=== PATIENT | female | born 1995 | race African-American/Black ===

== ENCOUNTER 2017-04-02 12:22 | Emergency (ER) | payer OTHER ==
[~2017-04-02] VITALS: Ht 154.9 cm; Wt 83.0 kg
--- NOTE | ~2017-04-02 | US67 ---
[facility] A Service of [facility] RADIOLOGY TEXT RESULTS PATIENT: IAM CADENA LOCATION: [facility] : [birth year] UNIT #: [id number] AGE: [address]: Inna Tobar SEX: F ORDER DR: [id number] [facility] [address] [place], [place] [address] [id number] E MR#: [id number] Acc #: [id number] NAME: IAM CADENA. : 1995 SEX: F STUDY DATE/TIME: 04/02/2017 13:11 UNIT: [facility] ROOM: STUDY DESCRIPTION: Gallbladder Attending Physician: Inna Tobar P.A.-C. Ordering Physician: Inna Tobar P.A.-C. Primary Care Physician: Kumar Martinez M.D. MEDICAL IMAGING REPORT This report is preliminary unless electronic signature is present EXAM Gallbladder ultrasound 04/02/2017 HISTORY Right upper quadrant pain for 2 days. No prior abdominal surgery. No hypertension. No hyperlipidemia. TECHNIQUE Real-time ultrasonography right upper quadrant performed. COMPARISON STUDIES No prior studies for comparison. FINDINGS The pancreas normal in appearance. The liver is normal in contour and echotexture. The portal vein and inferior vena cava are patent. Normal direction of flow in portal vein. The common bile duct measures 3.7 mm in diameter. There is no intra- or extrahepatic biliary ductal dilatation. The gallbladder is normal in volume. There is no gallstone, gallbladder wall thickening or pericholecystic fluid. The gallbladder wall measures about 2 mm in thickness. There does appear to be some sludge in the gallbladder. The liver is normal in size measuring approximately 16.1 cm in craniocaudal extent. The right kidney measures 9.87 cm in greatest length. There is no hydronephrosis or nephrolithiasis. No cystic or solid mass lesion. No perinephric fluid collection. IMPRESSION Normal right upper quadrant ultrasound. Dictated by... Jayesh Aguilar M.D. [facility] A Service of [facility] RADIOLOGY TEXT RESULTS PATIENT: IAM CADENA LOCATION: [facility] : [birth year] UNIT #: [id number] AGE: [address]: Inna Tobar SEX: F ORDER DR: THIS IS AN ELECTRONICALLY VERIFIED REPORT Jayesh Aguilar M.D. at 04/03/2017 6:04 PM Dianelys TD: 04/02/2017 20:39 JOB #: [id number] MEDICAL IMAGING REPORT Page 1 of 1 COPY
[~2017-04-02 12:22] MED LIST: CIPRO PO; CORTISONE14 GM TP; ELIMITE60 G1 TP; NO MEDICATIONS; TYLENOL #3 PO
[2017-04-02 12:57] LABS: URINE SOURCE CLEAN CATCH
[2017-04-02 13:07] LABS: BASOPHIL# 0.1 X10e3 (0-0.3); BASOPHIL% 0.5 % (0-2.5); EOSINOPHIL% 0.5 % (0.0-7.0); HEMATOCRIT 36.6 % (35.0-45.0); HEMOGLOBIN 12.4 gm/dL (12.0-16.0); LYMPHOCYTE% 18.8 % (17.0-45.0); MEAN CELL VOLUME 87.5 FL (83-96); MEAN CORPUSCULAR HEMOGLOBIN 29.6 PG (28-34); MEAN CORPUSCULAR HGB CONC 33.8 g/dL (30-36); MEAN PLATELET VOLUME 7.2 FL (6.5-11.5); MONOCYTE# 0.4 X10e3 (0-1.0); NEUTROPHIL% 76.2 % (40-75); PLATELET COUNT 245 X10e3 (140-420); RED BLOOD COUNT 4.18 X10e (3.90-5.30); RED CELL DISTRIBUTION WIDTH 13.8 % (11.0-15.5); WHITE BLOOD COUNT 10.4 X10e3 (4.0-10.5)
[2017-04-02 13:08] LABS: DIFF IND NO
[2017-04-02 13:20] LABS: URINE APPEARANCE TURBID; URINE BILIRUBIN NEG (NEG); URINE BLOOD NEG (NEG); URINE COLOR YELLOW; URINE GLUCOSE NEG (NEG); URINE KETONE TRACE (NEG); URINE LEUKOCYTE ESTERASE NEG (NEG); URINE NITRATE NEG (NEG); URINE PH 8.5 (5-8); URINE PROTEIN NEG (NEG); URINE SPECIFIC GRAVITY 1.018 (1.003-1.035)
[2017-04-02 13:26] LABS: CULTURE INDICATED? NO
[2017-04-02 13:48] LABS: ALBUMIN SERUM 4.2 g/dL (3.5-5.0); BILIRUBIN, DIRECT 0.1 mg/dL (0.0-0.2); BILIRUBIN,INDIRECT 0.6 mg/dL (0.0-0.9); BILIRUBIN,TOTAL 0.7 mg/dL (0.2-2.0); CALCIUM SERUM 8.8 mg/dL (8.4-10.2); CREATININE SERUM 0.6 mg/dL (0.6-1.4); GLOM FILT RATE Estimated 153.2 mL/min (>60); POTASSIUM 3.3 mmol/L (3.5-5.1); PROTEIN TOTAL SERUM 7.4 g/dL (6.0-8.3)
== END 2017-04-02 14:35 | disposition home or self-care (01) ==
LOC: CFTX 12:22 → CED 12:22 → CFTX 13:45
PROVIDERS: Physician Assistant
DX: O21.9 Vomiting of pregnancy, unspecified (principal); R10.13 Epigastric pain; Z98.890 Other specified postprocedural states
CPT/HCPCS: 36415; 76705; 80048; 80076; 81003; 82150; 83690; 84703; 85025; 99284; J1885